=== PATIENT | male | born 2005 | race Caucasian/White ===

== ENCOUNTER 2024-12-11 00:32 | Emergency (ER) | payer OTHER, SELFPAY ==
[2024-12-11 00:40] VITALS: BP 145/72; PULSE 101; RESP 18; TEMP 36.8; O2SAT 100; BMI 37.6
--- NOTE | 2024-12-11 06:05 | ED.GENADULT ---
HPI - General Adult General Chief complaint: Laceration/Wound Stated complaint: Lac inside mouth Time Seen by Provider: 12/11/24 00:54 Source: patient Mode of arrival: ambulatory Limitations: no limitations History of Present Illness HPI narrative: 19-year-old male presents to the emergency department with an or lesion. Patient was holding a flashlight in his mouth while working on his truck. He started using a pair of [employer] as a hammer, which unfortunately reared back, striking the flashlight in the patient's mouth, pushing the flashlight up against the patient's hard palate and causing an abrasion. Patient has a ?flap of skin? hanging down and initially had some bleeding which has stopped. No breathing difficulty, no swallowing difficulty. He did also chip his 2 lower central incisors minor early. He is not anticoagulated, he is not noticing any leakage of fluid or blood from the nose. Has no vision changes. No neck pain. No prior history of similar injury. No prior history of facial surgery. Did not try any interventions to help with symptoms. Past medical history benign per his report. Vaccinated, no allergies no long-term meds. ROS is notable for the oral injury only, otherwise denies any other generalized, HEENT, skin changes or respiratory changes. Related Data Allergies Allergy/AdvReac Type Severity Reaction Status Date / Time No Known Allergies Allergy Mild Verified 12/11/24 00:51 [facility] Social History Smoking Status: Never smoker Do you use any of these nicotine containing products: None How often do you have a drink containing alcohol: never How often do you have six or more drinks on one occasion: Never AUDIT-C Alcohol total score: 0 Non-prescribed substance use: denies use service: No Exam Const: Vital Signs, click to edit/add: Vital Signs - 24 hr 12/11/24 00:40 Temperature 98.2 F Pulse Rate [Pulse Oximeter] 101 H Respiratory Rate 18 Blood Pressure [Le ft Upper Arm] 145/72 H Pulse Oximetry 100 Oxygen Delivery Me thod Room Air Documenting provider has reviewed patient's vital signs: yes Common normals: no apparent distress General appearance: cooperative and comfortable HENMT: Common normals: normocephalic and nasal mucous membranes and turbinates normal Head and scalp: normocephalic Nose: nasal mucous membranes and turbinates normal Other: Abrasion consistent with reported history 1 cm wide about 2 cm long along the top of the mouth. Superficial denuded small corner consistent with reported history, not bleeding. Slight bruising noted but no fracture to the palate appreciated. Nares are patent bilaterally. Normal extraocular movements. Chipping to lower central incisors as described. Route not exposed. No areas of active bleeding. Tongue normal. Lips normal. Eye: Common normals: EOMs intact bilaterally and conjunctivae normal General eye: normal appearance of both eyes Conjunctiva: conjunctiva(e) normal Neck & C-Spine: Common normals: full ROM and no lymphadenopathy General: normal visual inspection Resp: Common normals: normal respiratory effort and clear to auscultation bilaterally Effort & inspection: able to speak in complete sentences Auscultation: clear to auscultation bilaterally Psych: Attitude: engaged Activity/motor behavior: appropriate eye contact Mood and affect: euthymic mood Insight: insight good Judgement: judgment good Skin: Common normals: no rashes or lesions noted General skin exam: no rashes or lesions noted Course Course ED Course: 19-year-old male with superficial abrasion to the hard palate. No signs of fracture, nasal injury, airway compromise. Slight chipping of lower central incisors will need dental evaluation, non Urgent. Counseled patient that were best to leave things alone since there is nothing bleeding. The slightly denuded epithelial air is best to be left in place and may scar back down to form a scab. Soft foods and room temperature beverages for the next 24-48 hours, gradually increasing texture as tolerated. Okay to use Tylenol and/or ibuprofen as needed. Low risk for infection, if any severe worsening of pain, swelling, difficulty swallowing or breathing, should be re-evaluated. He verbalizes understanding and agreement. Return to the ED if any severe bleeding. Written instructions provided. Vital Signs Vital signs: Initial Vital Signs Temperature 98.2 F 12/11/24 00:40 Temperature Source Temporal Artery Scan 12/11/24 00:40 Pulse Rate 101 H 12/11/24 00:40 Pulse Rhythm Regular 12/11/24 00:40 Respiratory Rate 18 12/11/24 00:40 Blood Pressure 145/72 H 12/11/24 00:40 Blood Pressure Mean 96 12/11/24 00:40 Blood Pressure Position Sitting 12/11/24 00:40 Pulse Oximetry 100 12/11/24 00:40 Oxygen Delivery Method Room Air 12/11/24 00:40 Vital Signs Temperature 98.2 F 12/11/24 00:40 Pulse Rate 101 H 12/11/24 00:40 Respiratory Rate 18 12/11/24 00:40 Blood Pressure 145/72 H 12/11/24 00:40 Pulse Oximetry 100 12/11/24 00:40 Oxygen Delivery Method Room Air 12/11/24 00:40 Temperature 98.2 F 12/11/24 00:40 Pulse Rate 101 H 12/11/24 00:40 Respiratory Rate 18 12/11/24 00:40 Blood Pressure 145/72 H 12/11/24 00:40 Pulse Oximetry 100 12/11/24 00:40 Oxygen Delivery Method Room Air 12/11/24 00:40 Discharge Plan Discharge Clinical Impression: Abrasion of oral cavity Patient Disposition: Home w/ Parent or Adult Condition: Stable Instructions: Abrasion (ED) Additional Instructions: As we discussed, there really isn't anything that can be done for this scratch inside the mouth. Do not pull on the loose tissue. This will close up on its own within just a few days. Soft foods and room temperature beverages only for the next 2 days. On the 3rd day, gradually increase to firmer textures as tolerated. Do not use any mouth washes, saltwater gargles or any other similar irritating rinses. It is okay to use Tylenol 1000 mg every 6 hours and or ibuprofen 600 mg every 6 hours as needed for mild discomfort. Drink plenty of fluids. Try to avoid alcohol in carbonated beverages for the next few days. You will need to follow up with her dentist regarding the broken lower teeth. We do not treat these in an emergency department. Thankfully, this is not urgent and can wait until the office is open early next week. Activity Level: No Restrictions Discharge Diet: Regular Stand Alone Forms: MyHealth Info Instructions
== END 2024-12-11 01:11 | disposition home or self-care (01) ==
PROVIDERS: Emergency Provider Family Medicine
DX: S00.512A Abrasion of oral cavity, initial encounter (principal); W22.8XXA Striking against or struck by other objects, initial encounter
CPT/HCPCS: 99283